=== PATIENT | male | born 1985 | race African-American/Black ===

== ENCOUNTER 2016-07-14 23:45 | Emergency (ER) | payer OTHER ==
--- NOTE | ~2016-07-14 | EKG ---
PATIENT: NITA MCLAIN UNIT #: [id number] Ventricular Rate: 77 BPM Atrial Rate: 77 BPM P-R Interval: 130 ms QRS Duration: 172 ms Q-T Interval: 414 ms QTC Calculation(Bezet): 468 ms P [place]: 38 degrees Calculated R [place]: 62 degrees Calculated T [place]: 69 degrees Diagnosis Line: Normal sinus rhythm with sinus arrhythmia Diagnosis Line: Right bundle branch block Diagnosis Line: Abnormal ECG Diagnosis Line: When compared with ECG of 18-MAR-2009 20:53, Diagnosis Line: QT has shortened Diagnosis Line: Confirmed by DEMAR CARDENAS MD ([id number]) on 07/15/2016 Diagnosis Line: 6:14:30 PM INTERPRETING MD: THERESA VALDIVIA
--- NOTE | ~2016-07-14 | CR63 ---
[facility] A Service of [facility] & [facility] RADIOLOGY TEXT RESULTS PATIENT: NITA MCLAIN LOCATION: [facility] : 89 UNIT #: [id number] AGE: [address]: Ayush Cross DO SEX: M ORDER DR: [id number] [facility] [address] [place], [place] [address] [id number] E MR#: [id number] Acc #: [id number] NAME: NITA MCLAIN : 1985 SEX: M STUDY DATE/TIME: 07/15/2016 00:02 UNIT: [facility] ROOM: STUDY DESCRIPTION: CR Chest 2 View Attending Physician: Ayush Cross D.O. Ordering Physician: Ayush Cross D.O. Primary Care Physician: Primary Care Physician No MEDICAL IMAGING REPORT This report is preliminary unless electronic signature is present EXAM Chest x-ray, 07/15 at 0002 hours INDICATIONS Shortness of air, chest pain and cough for 1 day. History of hypertension. FINDINGS 2 views of the chest compared with 03/18/2009. Heart remains enlarged status post sternotomy. Lungs are clear. No pneumothorax is seen. IMPRESSION Stable cardiomegaly status post sternotomy. No active disease. Dictated by... Wero Whittington Jr., M.D. THIS IS AN ELECTRONICALLY VERIFIED REPORT Wero Whittington Jr., M.D. at 07/15/2016 4:47 AM JCK/marry TD: 07/15/2016 04:33 JOB #: [id number] MEDICAL IMAGING REPORT COPY
[~2016-07-14 23:45] MED LIST: ALBUTEROL17 GM INH; KEFLEX500 M1 PO; KETOPROFEN PO; PHENERGAN PO; ULTRAM PO; VICODIN 5/500 T1 TAB PO; ZITHROMAX PO
[2016-07-14 23:48] LABS: INFLUENZA A NEG (NEG); INFLUENZA B NEG (NEG)
[2016-07-15 00:26] LABS: BASOPHIL% 0.3 % (0-2.5); EOSINOPHIL# 0.1 X10e3 (0-0.7); EOSINOPHIL% 1.7 % (0.0-7.0); HEMATOCRIT 42.4 % (38.0-50.0); HEMOGLOBIN 14.6 gm/dL (13.0-16.0); LYMPHOCYTE# 0.4 X10e3 (1.0-3.5); LYMPHOCYTE% 5.3 % (17.0-45.0); MEAN CELL VOLUME 86.7 FL (83-96); MEAN CORPUSCULAR HEMOGLOBIN 29.9 PG (28-34); MEAN CORPUSCULAR HGB CONC 34.5 g/dL (30-36); MEAN PLATELET VOLUME 10.3 FL (6.5-11.5); MONOCYTE# 0.6 X10e3 (0-1.0); MONOCYTE% 7.6 % (3.0-12.0); NEUTROPHIL# 6.2 X10e3 (1.5-7.1); NEUTROPHIL% 85.1 % (40-75); PLATELET COUNT 148 X10e3 (140-420); RED BLOOD COUNT 4.89 X10e (3.90-5.60); RED CELL DISTRIBUTION WIDTH 13.4 % (11.0-15.5); WHITE BLOOD COUNT 7.3 X10e3 (4.0-10.5)
[2016-07-15 00:31] LABS: DIFF IND NO; PARTIAL THROMBOPLASTIN TIME 28.1 SECONDS (23.5-31.3); PROTHROMBIN TIME (PATIENT) 10.5 SECONDS (9.6-11.5)
[2016-07-15 00:37] LABS: ALBUMIN SERUM 4.6 g/dL (3.5-5.0); ALKALINE PHOSPHATASE 55 U/L (32-92); ALT (SGPT) 40 U/L (10-40); AST (SGOT) 24 U/L (10-42); BILIRUBIN, DIRECT 0.2 mg/dL (0.0-0.2); BILIRUBIN,INDIRECT 1.1 mg/dL (0.0-0.9); BILIRUBIN,TOTAL 1.3 mg/dL (0.2-2.0); BLOOD UREA NITROGEN 10 mg/dL (9-23); BUN/CREATININE RATIO 11.11; CARBON DIOXIDE 25 mmol/L (22-31); CHLORIDE 100 mmol/L (100-111); CREATININE SERUM 0.9 mg/dL (0.6-1.4); GLOM FILT RATE Estimated ABOVE60 mL/min (>60); GLUCOSE FASTING 88 mg/dL (70-110); POTASSIUM 3.7 mmol/L (3.5-5.1); PROTEIN TOTAL SERUM 7.7 g/dL (6.0-8.3); SODIUM 134 mmol/L (135-145)
[2016-07-15 00:49] LABS: POC - CKMB <1.0 ng/mL (0.0-7.9); POC - TROPONIN <0.05 ng/mL (<=0.05)
[2016-07-15 01:51] LABS: URINE SOURCE CLEAN CATCH
[2016-07-15 02:16] LABS: URINE APPEARANCE CLEAR; URINE COLOR YELLOW; URINE GLUCOSE NORM (NEG); URINE ICTOTEST NEG (NEG); URINE KETONE 3+ (NEG); URINE LEUKOCYTE ESTERASE NEG (NEG); URINE NITRATE NEG (NEG); URINE PH 6.5 (5-8); URINE PROTEIN NEG (NEG); URINE SPECIFIC GRAVITY 1.015 (1.003-1.035)
[2016-07-15 02:17] LABS: CULTURE INDICATED? NO; URINE BILIRUBIN NEG (NEG); URINE BLOOD NEG (NEG); URINE UROBILINOGEN NORM (NEG)
[2016-07-15 02:30] LABS: POC - CKMB <1.0 ng/mL (0.0-7.9); POC - TROPONIN <0.05 ng/mL (<=0.05)
== END 2016-07-15 04:13 | disposition home or self-care (01) ==
LOC: CED 23:45
PROVIDERS: Emergency Medicine
DX: R07.9 Chest pain, unspecified (principal); R06.02 Shortness of breath; R50.9 Fever, unspecified; R05 Cough
CPT/HCPCS: 36415; 71020; 80048; 80076; 81003; 82553; 83880; 84484; 85025; 85610; 85730; 87040; 87651; 87804; 87880; 93005; 96361; 96374; 96375; 99284; J2270; J2405